=== PATIENT | female | born 1965 | race Caucasian/White ===

== ENCOUNTER 2016-04-09 02:06 | Observation (INO) | payer OTHER ==
[~2016-04-09] VITALS: Ht 165.1 cm; Wt 71.5 kg
[2016-04-09] MEDS ORDERED: SOD CHLORIDE 0.9% 500 ML IV STA (05:36)
[2016-04-09] MEDS ORDERED: FAMOTIDINE 20 MG INJ IV STA (06:52)
[2016-04-09] MEDS ORDERED: KETOROLAC 30 MG INJ IV STA (06:52)
[2016-04-09] MEDS ORDERED: SOD CHLORIDE 0.9% 1,000 ML IV STA (06:52)
[2016-04-09] MEDS ORDERED: ONDANSETRON 4 MG INJ IV STA (06:52)
[2016-04-09 07:10] LABS: BASOPHILS % 0.4 % (0.0-2.0); EOSINOPHILS # 0.1 10^3/ul (0.0-0.5); EOSINOPHILS % 1.2 % (0.0-7.0); HEMATOCRIT 43.9 % (37.0-47.0); LYMPHOCYTES # 2.7 10^3/ul (0.8-2.9); LYMPHOCYTES % 30.9 % (15.0-51.0); MEAN CORPUSCULAR HEMOGLOBIN 29.7 pg (29.0-33.0); MEAN CORPUSCULAR HGB CONC 34.3 g/dl (32.0-37.0); MEAN CORPUSCULAR VOLUME 86.6 fl (82.0-101.0); MEAN PLATELET VOLUME 8.8 fl (7.4-10.4); MONOCYTE # 0.5 10^3/ul (0.3-0.9); MONOCYTES % 5.4 % (0.0-11.0); NEUTROPHIL # 5.5 10^3/ul (1.6-7.5); NEUTROPHILS % 62.1 % (39.0-77.0); PLATELET COUNT 257 10^3/UL (140-440); RED BLOOD COUNT 5.06 10^6/ul (4.20-5.40); RED CELL DISTRIBUTION WIDTH 12.8 % (11.5-14.5); UNCORRECTED WBC 8.9 10^3/ul (4.8-10.8); WHITE BLOOD COUNT 8.9 10^3/ul (4.8-10.8)
[2016-04-09 07:14] LABS: CONDITION 1
[2016-04-09 07:18] LABS: ADD UMIC NO; URINE BILIRUBIN (Dip) NEGATIVE (NEGATIVE); URINE BLOOD (Dip) NEGATIVE (NEGATIVE); URINE COLOR LT. YELLOW (YELLOW); URINE GLUCOSE (Dip) NEGATIVE (NEGATIVE); URINE KETONES (Dip) NEGATIVE (NEGATIVE); URINE LEUKOCYTE ESTERASE (Dip) NEGATIVE (NEGATIVE); URINE NITRITE (Dip) NEGATIVE (NEGATIVE); URINE TOTAL PROTEIN (Dip) NEGATIVE (NEGATIVE); URINE UROBILINOGEN (Dip) 0.2 E.U./dL (0.1-1.0)
[2016-04-09 07:26] LABS: ALBUMIN 4.5 g/dl (3.3-4.9)
[2016-04-09 07:27] LABS: POTASSIUM 4.2 mmol/L (3.5-5.1)
[2016-04-09 07:29] LABS: ALBUMIN/GLOBULIN RATIO 1.07; BILIRUBIN,INDIRECT 0.4 mg/dl (0-1.1); BILIRUBIN,TOTAL 0.4 mg/dl (0.2-1.3); CREATININE 0.63 mg/dl (0.44-1.00); TOTAL PROTEIN 8.7 g/dl (6.1-8.1)
[2016-04-09 07:30] LABS: CALCIUM 9.7 mg/dl (8.4-10.2)
--- NOTE | 2016-04-09 07:45 | RADRPT ---
PROCEDURE: CT Abdomen and Pelvis without contrast. CLINICAL INDICATION: Abdominal pain TECHNIQUE: CT of the abdomen and pelvis was performed on a multi-detector scanner without IV contr ast. Coronal and sagittal images were reformatted from the axial data set. One or more of the foll owing dose reduction techniques were used: automated exposure control, adjustment of the mA and/or kV according to patient size, use of iterative reconstruction technique. CTDI = 12.1 mGy. DLP = 675 .27 mGy-cm. COMPARISON: None. FINDINGS: CT abdomen: The lung bases are clear. The heart size is normal, without pericardial effusion. Subtle heterogen eous density within the gallbladder is suspicious for cholelithiasis. Gallbladder wall thickening a nd pericholecystic fluid are noted. Findings are concerning for acute cholecystitis. Liver, biliar y tree, pancreas, spleen, adrenal glands and kidneys are unremarkable. No urolithiasis or obstructi ve uropathy is identified. The stomach is partially collapsed, but appears grossly unremarkable. The aorta is of normal caliber. Aortic vascular calcifications are present. There is no retroperit garg lymphadenopathy. The jim hepatis region is clear. CT pelvis: No bowel obstruction, free intraperitoneal air or abscess is identified. There is no diverticulosis , diverticulitis or colitis. The appendix is well visualized and normal. Urinary bladder, uterus a nd adnexa are grossly unremarkable. No pelvic mass, free fluid or lymphadenopathy is identified. The surrounding osseous structures are unremarkable. No osteolytic or osteoblastic lesion is detect ed. IMPRESSION: 1. Findings suspicious for cholelithiasis and cholecystitis, as above. Consider ultrasound and/or nuclear medicine HIDA scan for further evaluation. 2. Scattered aortoiliac atherosclerotic calcifications are present. RPTAT: EE .Kolby Khan MD, MD Date Time Electronically viewed and signed by .Kolby Khan MD, MD on 04/09/2016 07:44 .R/
--- NOTE | 2016-04-09 09:23 | RADRPT ---
PROCEDURE: US Abdomen. CLINICAL INDICATION: abdominal pain TECHNIQUE: Multiple real-time images were acquired of the patient's right upper quadrant abdomen a nd retroperitoneum utilizing a high resolution transducer. COMPARISON: None FINDINGS: The liver demonstrates normal echogenicity. The liver is normal in size and no focal solid lesions are seen. The liver measures 14.6 cm in length. The portal vein is patent with normal direction of f low. No intrahepatic biliary dilatation is seen. There are 2 calcified stones within the gallbladder. There is gallbladder wall thickening measuring 6 mm. There is mild pericholecystic fluid. The common bile duct measures 4 mm in maximal dimension . The visualized portions of the pancreas are unremarkable. The tail of the pancreas is not seen. No free fluid is identified. The right kidney is normal in size, and demonstrate normal echogenicity and cortical thickness. The right kidney measures 10.8 cm in long dimension. There is no evidence of hydronephrosis. There are no kidney stones. RPTAT: AA IMPRESSION: Cholelithiasis with gallbladder wall thickening and mild pericholecystic fluid may represent acute c holecystitis. .Beau Barrios MD, MD Date Time Electronically viewed and signed by .Beau Barrios MD, MD on 04/09/2016 09:22 .S/
--- NOTE | 2016-04-09 10:25 | ERA ---
ER Documentation Chief Complaint Date/Time DATE: 04/09/16 TIME: 10:22 Chief Complaint abdominal pain and burping since last night. HPI Patient is a 50-year-old female who comes to the emergency department with vague abdominal pain and burping since last night. She says the pain is actually a little better at this time. She says it started after she ate dinner. She denies any nausea, vomiting, fever, diarrhea, constipation, dysuria , hematuria, flank, back pain, or sick contacts. She states she has never experienced this pain before. She was afraid to eat again. She does mention that her period is late and wonders if she is . Denies any chest pain, shortness of breath, coughing, congestion, rhinorrhea, sore throat, or otalgia. In the remainder of the systems are negative. ROS All systems reviewed and are negative except as per history of present illness. Medications Home Meds Unable to Obtain Active Prescriptions or Reported Meds Allergies Allergies: Coded Allergies: Unknown: Unable to obtain (Unverified , 05/20/14) PMhx/Soc Medical and Surgical Hx: pt denies Surgical Hx History of Surgery: No Anesthesia Reaction: No Hx Neurological Disorder: No Hx Respiratory Disorders: No Hx Cardiac Disorders: Yes (htn) Hx Psychiatric Problems: No Hx Miscellaneous Medical Probl: No Hx Alcohol Use: No Hx Substance Use: No Hx Tobacco Use: No Smoking Status: Never smoker FmHx Family History: No diabetes Physical Exam Vitals Vital Signs Date Time Temp Pulse Resp B/P Pulse Ox O2 Delivery O2 Flow Rate FiO2 04/09/16 06:23 98.0 68 20 155/106 98 Room Air 04/09/16 02:12 97.5 92 20 167/113 98 Physical Exam Const: [] Well-developed well-nourished female sitting on the bed in no acute distress Head: Atraumatic Eyes: Normal Conjunctiva ENT: Normal External Ears, Nose and Mouth. Neck: Full range of motion..~ No meningismus. Resp: Clear to auscultation bilaterally Cardio: Regular rate and rhythm, no murmurs Abd: Soft, mild tenderness diffusely with no specific pattern noted ,non distended. Normal bowel sounds Skin: No petechiae or rashes Back: No midline or flank tenderness Ext: No cyanosis, or edema Neur: Awake and alert, oriented 3 with a GCS of 15 Psych: Normal Mood and Affect Result Diagram: 04/09/16 0609 04/09/16 0609 Results 24 hrs Laboratory Tests Test 04/09/16 06:09 Alanine Aminotransferase (ALT/SGPT) 30IU/L Albumin 4.5g/dl Albumin/Globulin Ratio 1.07 Alkaline Phosphatase 109IU/L Anion Gap 18 Aspartate Amino Transf (AST/SGOT) 33IU/L Basophils # 0.010^3/ul Basophils % 0.4% Beta HCG, Quantitative < 2.4mIU/ml Blood Urea Nitrogen 17mg/dl Calcium Level 9.7mg/dl Carbon Dioxide Level 31mmol/L Chloride Level 99mmol/L Creatinine 0.63mg/dl Direct Bilirubin 0.00mg/dl Eosinophils # 0.110^3/ul Eosinophils % 1.2% Globulin 4.20g/dl Glucose Level 90mg/dl Hematocrit 43.9% Hemoglobin 15.0g/dl Indirect Bilirubin 0.4mg/dl Lipase 115U/L Lymphocytes # 2.710^3/ul Lymphocytes % 30.9% Mean Corpuscular Hemoglobin 29.7pg Mean Corpuscular Hemoglobin Concent 34.3g/dl Mean Corpuscular Volume 86.6fl Mean Platelet Volume 8.8fl Monocytes # 0.510^3/ul Monocytes % 5.4% Neutrophils # 5.510^3/ul Neutrophils % 62.1% Nucleated Red Blood Cells # 0.010^3/ul Nucleated Red Blood Cells % 0.0/100WBC Platelet Count 07695^3/UL Potassium Level 4.2mmol/L Red Blood Count 5.0610^6/ul Red Cell Distribution Width 12.8% Sodium Level 144mmol/L Total Bilirubin 0.4mg/dl Total Protein 8.7g/dl Urine Bilirubin NEGATIVE Urine Clarity CLEAR Urine Color LT. YELLOW Urine Glucose NEGATIVE% Urine Hemoglobin NEGATIVE Urine Ketones NEGATIVE Urine Leukocyte Esterase NEGATIVE Urine Nitrite NEGATIVE Urine Specific [place] 1.010 Urine Total Protein NEGATIVE Urine Urobilinogen 0.2 E.U./dL Urine pH 7.0 White Blood Count 8.910^3/ul Current Medications Medications (Trade) Dose Ordered Sig/Theo Route PRN Reason Start Time Stop Time Status Last Admin Dose Admin Sodium Chloride 500 ml @ 500 mls/hr Q1H STAT IV 04/09/16 05:36 04/09/16 06:35 DC Sodium Chloride (NS) 1,000 ml @ 1,000 mls/hr Q1H STAT IV 04/09/16 06:52 04/09/16 07:51 DC 04/09/16 07:14 Ondansetron HCl (Zofran Inj) 4 mg ONCE STAT IV 04/09/16 06:52 04/09/16 06:55 DC 04/09/16 07:12 Famotidine (Pepcid Iv) 20 mg ONCE STAT IV 04/09/16 06:52 04/09/16 06:55 DC 04/09/16 07:12 Ketorolac Tromethamine 30 mg 30 mg ONCE STAT IV 04/09/16 06:52 04/09/16 06:55 DC 04/09/16 07:11 Ertapenem/Sodium Chloride (Invanz/NS) 100 ml @ 200 mls/hr ONCE ONCE IVPB 04/09/16 10:30 04/09/16 10:59 Procedures/MDM 1024: Patient states that she feels improved. There is no significant change in her exam. 1028: Spoke with Dr. Nunez. He requests that I speak with the hospitalist for admission. Departure Diagnosis: Primary Impression: Cholecystitis Additional Impression: Abdominal pain Qualified Code: R10.11 - Right upper quadrant abdominal pain Condition: Stable DANIA MANN Apr 09, 2016 10:25
[2016-04-09] MEDS ORDERED: ERTAPENEM SODIUM 1 GM in SOD CHLORIDE 0.9% 100 ML IVPB ONE (10:30)
[2016-04-09 11:30] VITALS: TEMP 98.2
[2016-04-09] MEDS ORDERED: BENA5TAB2 PO (11:36)
[2016-04-09] MEDS ORDERED: HYD25 PO (11:36)
[2016-04-09] MEDS ORDERED: ACETAMINOPHEN 325 MG TAB PO PRN (12:00)
[2016-04-09] MEDS ORDERED: BISACODYL 10 MG SUPP PR PRN (12:00)
[2016-04-09] MEDS ORDERED: ACETAMINOPHEN 650 MG SUPP PR PRN (12:00)
[2016-04-09] MEDS ORDERED: DOCUSATE SODIUM 100 MG CAP PO PRN (12:00)
[2016-04-09] MEDS ORDERED: ONDANSETRON 4 MG INJ IV PRN ×2 (12:00)
[2016-04-09] MEDS ORDERED: hydrALAzine 20 MG INJ IV PRN (12:00)
[2016-04-09] MEDS ORDERED: HYDROCODONE/APAP (5/325) TAB PO PRN (12:00)
[2016-04-09] MEDS ORDERED: morphine 2 MG INJ IV PRN (12:00)
[2016-04-09] MEDS ORDERED: LABETALOL HCL 20MG INJ IV ONE (12:00)
[2016-04-09] MEDS ORDERED: NACL 0.9% 3 ML SYG IV SCH (12:00)
[2016-04-09] MEDS: DEXTROSE 5%-0.45% NACL 1,000 ML IV SCH (12:11)
[2016-04-09 13:10] VITALS: BP 142/93; PULSE 79; RESP 20
[2016-04-09 13:56] VITALS: Ht 165.1 cm; Wt 71.5 kg
--- NOTE | 2016-04-09 16:57 | RADRPT ---
PROCEDURE: HIDA scan CLINICAL INDICATION: 50 -year-old patient with abdominal pain. TECHNIQUE: Following the intravenous injection of 7.3 mCi of Tc-99m mebrofenin, multiple images of the abdomen were obtained up to 60 minutes post injection. COMPARISON: No prior studies. FINDINGS: The liver is promptly visualized, demonstrates homogeneous distribution of radionuclide. There is visualization of the common bile duct, gallbladder and gastrointestinal activity within nor mal time. IMPRESSION: No evidence to suggest the presence of common bile or cystic ducts obstruction. A call report was made to Dr. Nunez at 04:55 p.m. on April 09, 2016 RPTAT: HH .Carolina Pradhan MD, MD Date Time Electronically viewed and signed by .Carolina Pradhan MD, on 04/09/2016 16:56 .L/
--- NOTE | 2016-04-09 18:01 | HP ---
DATE OF ADMISSION: 04/09/2016 TIME BUYER: Dr. Silvestre Nunez CHIEF COMPLAINT: Abdominal pain. HISTORY OF PRESENT ILLNESS: This is a 50-year-old female with past medical history of hypertension who presents to [facility] secondary to having abdominal discomfort in mid epigast skylar and right upper quadrant, which has been off and on for the past 2 months. The patient had abdo reed ultrasound, which showed cholelithiasis with gallbladder wall thickening and mild pericholecys tic fluid, may represent acute cholecystitis. The WBC was within normal limits. The patient's CT o f the abdomen with findings suspicious of cholelithiasis, cholecystitis, scattered aortoiliac athero sclerosis calcification was present. The patient was made n.p.o., IV fluid, and was treated with In [facility]. Has been admitted to med/surg where she had a HIDA scan, which showed no evidence of ____, co mmon bile duct or cystic duct obstruction. At this time, the patient denies any abdominal pain, [place] sea, vomiting, diarrhea. No chest pain, palpitations, edema, orthopnea. No change in visual acuity , diplopia, photophobia. No headache, dizziness, lightheadedness. No heat and cold intolerance. N o dysuria, hematuria, urgency, incontinence. No change in the color of stool or any other discomfor t. PAST MEDICAL AND SURGICAL HISTORY: Hypertension. MEDICATIONS: 1. Benazepril. 2. Hydrochlorothiazide. ALLERGIES: NO KNOWN DRUG ALLERGIES. FAMILY HISTORY: Noncontributory. SOCIAL HISTORY: Negative x3 for smoking, alcohol, illicit drugs. REVIEW OF SYSTEMS: As above per HPI, otherwise 12 review of systems has been found to be negative. PHYSICAL EXAMINATION: VITAL SIGNS: Temperature 98.1, pulse 79, respiration 20, blood pressure 142/93, oxygen 98% in room air. GENERAL APPEARANCE: The patient is lying in bed comfortably without acute distress. She is awake, alert, oriented. She is able to answer my questions properly. EYES AND ENT: Conjunctivae and lids are normal. Pupils are normal. Extraocular normal. Hearing g rossly normal. Lips are normal. Oral mucosa is moist. NECK: Supple. Trachea is midline. No lymphadenopathy. RESPIRATORY: Effort is normal. Clear to auscultate bilaterally. CARDIOVASCULAR: Normal S1, S2. Regular rhythm and rate. No murmur, no bruits, no edema. Peripher al pulses, radial pulses palpable. Cap refill is normal. CHEST: Normal expansion of thorax during inspiration. GASTROINTESTINAL: Abdomen is soft, nontender, not distended. Bowel sounds present. No guarding, n o rebound. GENITOURINARY: Deferred. MUSCULOSKELETAL: Upper and lower extremities within normal limits. Full range of motion. Strength 5/5 in both upper and lower extremities. NEUROLOGIC: Cranial nerves II through XII are grossly intact. PSYCHIATRIC: She is awake, alert, oriented. LABORATORY WORK AND IMAGING: Sodium 144, potassium 4.2, chloride 99, bicarbonate 31, BUN 17, creati nine 0.63, glucose 90, calcium 9.7. LFTs all within normal limits. Total protein 8.7. Lipase 115. AST, ALT, bilirubin are within normal limits. WBC 8.9, hemoglobin 15, hematocrit 43.9, platelets 257. Urinalysis is negative. CT the abdomen and pelvis, abdominal ultrasound, and HIDA scan as abo ve per HPI. ASSESSMENT AND PLAN: 1. Abdominal pain with the finding of cholelithiasis with gallbladder wall thickening and mild yesica cholecystic fluid on the abdominal ultrasound. The patient is asymptomatic. HIDA scan was negative . General surgery has been consulted. At this time, place patient n.p.o., IV fluid, pain medicatio n. Will follow with general surgery recommendation. The patient has been started on cefazolin. 2. Essential hypertension. Continue benazepril. 3. For deep venous thrombosis prophylaxis, on sequential compression devices. 4. For gastrointestinal prophylaxis, on proton pump inhibitor. 5. We will continue to monitor patient closely. Further recommendations, management, and treatment as per clinical course. Total time spent for evaluation of patient and admission workup, 40 minutes. Dictated By: JESSE MUSE/NTS Conf#: [id number] DID#: [id number]
[2016-04-09 19:39] VITALS: BP 138/97; RESP 18
[2016-04-09] MEDS ORDERED: BENAZEPRIL 5 MG TAB PO SCH (21:00)
--- NOTE | 2016-04-09 21:15 | CONS ---
DATE OF ADMISSION: 04/09/2016 DATE OF CONSULTATION: 04/09/2016 HISTORY OF PRESENT ILLNESS: Ms. De La Cruz is a 50-year-old female who presented to the ER today with some mid epigastric and questionable right upper quadrant pain which has been on and off for the pa st 2 months. The patient denies nausea or vomiting. She also denies further symptoms at this time. PAST MEDICAL HISTORY: Significant for hypertension. MEDICATIONS: Benazepril, hydrochlorothiazide. ALLERGIES: NO KNOWN DRUG ALLERGIES. SOCIAL HISTORY: Denies smoking, drinking or drug use. PHYSICAL EXAMINATION: GENERAL: She is a well-nourished, well-developed female in no apparent distress. VITAL SIGNS: She is afebrile. Vital signs stable. CHEST: Clear to auscultation bilaterally. HEART: Regular rhythm. ABDOMEN: Soft, nontender, nondistended. LABORATORY DATA: Today reveal a white count of 9, hematocrit of 44, platelets of 257. Her LFTs wer e within normal limits. Sodium 144, potassium 4.2, chloride 99, CO2 of 31, BUN and creatinine 17 an d 0.6 and a glucose of 90. Her CT of her abdomen and pelvis revealed findings suspicious for cholel ithiasis and cholecystitis. An ultrasound of her gallbladder showed cholelithiasis and possible gal lbladder wall thickening and mild pericholecystic fluid, which may represent acute cholecystitis. A HIDA scan was normal. ASSESSMENT AND PLAN: Ms. De La Cruz is a 50-year-old female with abdominal pain of uncertain etiology . 1. She obviously does not have acute cholecystitis based on the HIDA scan as well as the fact she i s nontender on exam. Nor does she have a white count. 2. Start her on p.o.s and if tolerates, can be discharged home. 3. I explained to her that this possibly could be her gallbladder but I am not clear at this point. If her symptoms happen again then I would recommend a laparoscopic cholecystectomy at that point. Dictated By: SEPIDEH WATSON/IQRA Conf#: [id number] DID#: [id number]
[2016-04-09] MEDS: CEFAZOLIN 1 GM/50 ML (PMX) 50 ML IVPB SCH (21:28)
[2016-04-09] MEDS: ACETAMINOPHEN 325 MG TAB PO PRN (21:28)
[2016-04-10] MEDS: DEXTROSE 5%-0.45% NACL 1,000 ML IV SCH (01:11)
[2016-04-10] MEDS: ACETAMINOPHEN 325 MG TAB PO PRN (03:33)
[2016-04-10 05:39] LABS: BASOPHILS % 0.4 % (0.0-2.0); EOSINOPHILS # 0.1 10^3/ul (0.0-0.5); EOSINOPHILS % 2.9 % (0.0-7.0); HEMOGLOBIN 13.8 g/dl (12.0-16.0); LYMPHOCYTES # 2.1 10^3/ul (0.8-2.9); LYMPHOCYTES % 42.9 % (15.0-51.0); MEAN CORPUSCULAR HEMOGLOBIN 29.7 pg (29.0-33.0); MEAN CORPUSCULAR HGB CONC 34.6 g/dl (32.0-37.0); MEAN CORPUSCULAR VOLUME 85.9 fl (82.0-101.0); MEAN PLATELET VOLUME 8.2 fl (7.4-10.4); MONOCYTE # 0.5 10^3/ul (0.3-0.9); MONOCYTES % 9.9 % (0.0-11.0); NEUTROPHIL # 2.2 10^3/ul (1.6-7.5); NEUTROPHILS % 43.9 % (39.0-77.0); PLATELET COUNT 225 10^3/UL (140-440); RED BLOOD COUNT 4.65 10^6/ul (4.20-5.40); RED CELL DISTRIBUTION WIDTH 12.9 % (11.5-14.5); UNCORRECTED WBC 4.9 10^3/ul (4.8-10.8); WHITE BLOOD COUNT 4.9 10^3/ul (4.8-10.8)
[2016-04-10] MEDS: CEFAZOLIN 1 GM/50 ML (PMX) 50 ML IVPB SCH (05:49)
[2016-04-10] MEDS ORDERED: PANTOPRAZOLE (EC) 40 MG TAB PO SCH (06:00)
[2016-04-10 06:20] LABS: ALBUMIN 3.7 g/dl (3.3-4.9)
[2016-04-10 06:23] LABS: ALBUMIN/GLOBULIN RATIO 1.08; BILIRUBIN,INDIRECT 0.5 mg/dl (0-1.1); BILIRUBIN,TOTAL 0.5 mg/dl (0.2-1.3); CREATININE 0.69 mg/dl (0.44-1.00); TOTAL PROTEIN 7.1 g/dl (6.1-8.1)
[2016-04-10 06:24] LABS: CALCIUM 9.3 mg/dl (8.4-10.2); CHOL/HDL RATIO 4.2 RATIO
[2016-04-10 06:56] LABS: CONDITION 1
[2016-04-10 07:20] VITALS: BP 131/88; RESP 22
--- NOTE | 2016-04-10 10:35 | PDOCDIS ---
Discharge Instructions CONDITION Patient Condition: Good HOME CARE INSTRUCTIONS: Special Diet: Low fat/ cholesterol diet ACTIVITY: Activity Restrictions: No Restrictions FOLLOW UP/APPOINTMENTS Appointments Follow up with PCP in one week JESSE ROD MD Apr 10, 2016 10:35
[2016-04-10] MEDS ORDERED: CEPH500C PO (10:38)
[2016-04-10] MEDS ORDERED: HYDR-906 PO (10:38)
[2016-04-10] MEDS ORDERED: FAMO-18 PO (10:38)
--- NOTE | 2016-04-10 22:17 | DS ---
DATE OF ADMISSION: 04/09/2016 DATE OF DISCHARGE: 04/10/2016 MALT LOADER: General surgery. DISCHARGE DIAGNOSES: 1. Abdominal pain. 2. Cholelithiasis. 3. Essential hypertension. IMAGING: HIDA scan showed no evidence to suggest the presence of common bile duct or cystic duct ob struction. LABORATORY: WBC 4.9, hemoglobin 13.9, hematocrit 40, platelets 225,000. Sodium 143, potassium 4.0, chloride 102, bicarbonate 31, BUN 11, creatinine 0.69, glucose 106. LFTs all within normal limits. VITAL SIGNS: Temperature 98.4, pulse 69, respiration 22, blood pressure 131/88, oxygen saturation 1 00%. HOSPITAL COURSE: This is a pleasant 50-year-old female with past medical history of hypertension, w ho presents to [facility] ER secondary to having abdominal discomfort. The pain was not as sociated with any nausea or vomiting. It was in the midepigastric and right upper quadrant. The pa tient's WBC was normal. Vitals were found to be normal. Patient obtained a gallbladder ultrasound, which showed cholelithiasis, gallbladder wall thickening, and mild pericholecystic fluid may repres ent acute cholecystitis. The patient was admitted to Med/Surg. Surgery was consulted. Patient was made n.p.o. IV fluid and pain medication was initiated. After evaluation by medical team and gene ral surgery, patient was found to be asymptomatic. HIDA scan was obtained, which was negative for o bstruction. Patient was restarted on clear liquid diet and has been advanced to regular diet, and h as been tolerating. At this time, the patient is medically stable to be discharged home with a clos e followup with her primary care physician as an outpatient. I have instructed, in case the patient has any episodes of abdominal discomfort postprandial, especially when patient is consuming fatty f ood, the patient needs to return to emergency room immediately for possible elective cholecystectomy . CONDITION AT TIME OF DISCHARGE: At this time is stable. Total time spent for evaluation and discharge workup was 35 minutes. Dictated By: JESSE ROD MD PN/NTS Conf#: [id number] DID#: [id number]
== END 2016-04-10 13:55 | disposition home or self-care (01) ==
LOC: E/R 02:06 → UNDOADMOB 11:51 → MS2 11:51
PROVIDERS: ADMIT Family Medicine; ATTEND Family Medicine
DX: K80.20 Calculus of gallbladder without cholecystitis without obstruction (principal); I10 Essential (primary) hypertension
CPT/HCPCS: 36415; 74176; 76705; 78226; 80053; 80061; 81003; 83690; 83735; 84702; 85025; 96365; 96375; A9537; J0690; J1335; J1885; J2405; J7030; J7040; J7042; Z7500; Z7502; Z7610; G0378

== ENCOUNTER 2017-03-18 19:33 | Emergency (ER) | END 2017-03-19 02:35 | disposition home or self-care (01) ==

== ENCOUNTER 2017-08-25 19:20 | Emergency (ER) | END 2017-08-25 23:43 | disposition home or self-care (01) ==

== ENCOUNTER 2018-07-30 20:45 | Emergency (ER) | payer OTHER ==
[~2018-07-30] VITALS: Ht 165.1 cm; Wt 75.5 kg
[~2018-07-30 20:45] MED LIST: BEN25 PO; BENA5TAB33 PO; CLIN300C10 PO; FAMO-96 PO; HYDR25TA6 PO; PRED20TA PO
[2018-07-30 21:30] VITALS: Ht 165.1 cm; Wt 75.5 kg
--- NOTE | 2018-07-30 22:41 | ERD ---
ER Documentation Chief Complaint Chief Complaint chest congestion & been having hi BP x 3weeks;Benazepril no working HPI The patient is a 52-year-old female, presenting to the ER because of nasal congestion for the last 4 days with intermittent cough and sore throat. She also claimed that her blood pressure is elevated despite taking benazepril 10 mg daily. She denies headache, neck pain, chest pain, dyspnea, abdominal pain, vomiting, dysuria, diarrhea. She does not smoke nor drink, has increased stress in her life Past medical history: Hypertension Past surgical history: None ROS All systems reviewed and are negative except as per history of present illness. Medications Home Meds Active Scripts Cetirizine Hcl* (Zyrtec*) 10 Mg Capsule, 10 MG PO DAILY, #10 TAB Prov:NAVI GARCIA MD 07/31/18 Fluticasone Propionate (Flonase Allergy Relief) 9.9 Ml [place].susp, 2 SPRAY NASAL DAILY, #1 BOTTLE TO EACH NOSTRIL Prov:NAVI GARCIA MD 07/31/18 Nifedipine* (Nifedipine ER*) 30 Mg Tablet.sa, 30 MG PO DAILY for 7 Days, TAB.SA Prov:NAVI GARCIA MD 07/31/18 Prednisone* (Prednisone*) 20 Mg Tab, 40 MG PO DAILY for 4 Days, TAB Prov:MANUELA BARRON MD 08/25/17 Famotidine* (Pepcid*) 20 Mg Tablet, 20 MG PO BID for 4 Days, TAB Prov:MANUELA BARRON MD 08/25/17 Diphenhydramine Hcl* (Benadryl*) 25 Mg Cap, 25 MG PO Q6 PRN for ITCHING/RASH, #16 TAB Prov:MANUELA BARRON MD 08/25/17 Clindamycin Hcl* (Clindamycin Hcl*) 300 Mg Capsule, 300 MG PO TID for 10 Days, CAP Prov:MANUELA BARRON MD 08/25/17 Reported Medications Hydrochlorothiazide* (Hydrochlorothiazide*) 25 Mg Tab, 25 MG PO DAILY, #30 TAB 08/25/17 Benazepril Hcl* (Benazepril Hcl*) 5 Mg Tablet, 5 MG PO QHS, #30 TAB 08/25/17 Allergies Allergies: Coded Allergies: mupirocin (Unverified Allergy, Unknown, LEGS SWELLING, 08/25/17) sulfamethoxazole (Unverified Allergy, Unknown, SWELLING BODY PARTS, 08/25/17) PMhx/Soc History of Surgery: No Anesthesia Reaction: No Hx Neurological Disorder: No Hx Respiratory Disorders: No Hx Cardiac Disorders: No Hx Psychiatric Problems: No Hx Miscellaneous Medical Probl: Yes (HTN) Hx Alcohol Use: No Hx Substance Use: No Hx Tobacco Use: No Physical Exam Vitals Vital Signs Date Temp Pulse Resp B/P (MAP) Pulse Ox O2 O2 Flow FiO2 Time Delivery Rate 07/31/18 83 16 169/109 100 Room Air 02:22 (129) 07/31/18 83 20 173/115 100 Room Air 01:33 (134) 07/31/18 77 16 166/117 100 Room Air 00:34 (133) 07/30/18 82 16 176/128 100 Room Air 23:02 (144) 07/30/18 98.4 88 18 197/112 100 21:30 (140) Physical Exam Const: No acute distress. Head: Atraumatic. Eyes: Normal Conjunctiva. ENT: Normal External Ears, Nose and Mouth. No sinus tenderness Neck: Full range of motion. No meningismus. Resp: Clear to auscultation bilaterally. Cardio: Regular rate and rhythm. Abd: Soft, non distended, normal bowel sounds, non tender. Skin: No petechiae or rashes. Back: No midline or flank tenderness. Ext: No cyanosis, or edema. Neur: Awake and alert. No focal deficit Psych: Normal Mood and Affect. Results 24 hrs Current Medications Medications Dose Sig/Theo Start Time Status Last (Trade) Ordered Route PRN Stop Time Admin Dose Reason Admin Nifedipine 30 mg ONCE ONCE 07/30/18 DC 07/30/18 (Procardia PO 23:00 23:01 Xl) 07/30/18 23:01 Procedures/MDM MEDICAL MAKING DECISION: The patient is a 52-year-old female, presenting with acute accelerated hypertension, acute viral syndrome. She was treated with Procardia XL 30 mg p.o. with good blood pressure response, is stable for outpatient follow-up The differential diagnoses considered include but are not limited to medical/dietary noncompliance, sinusitis, allergic rhinitis Departure Diagnosis: Primary Impression: Accelerated hypertension Additional Impression: URI (upper respiratory infection) Condition: Good Comments She was discharged with Procardia XL 30 mg daily, Flonase, Zyrtec I discussed the findings with the patient. I advised the patient to follow-up with the primary physician in about 2-3 days, sooner if needed and return if any concern. Disclaimer: Inadvertent spelling and grammatical errors are likely due to EHR/dictation software use and do not reflect on the overall quality of patient care. Also, please note that the electronic time recorded on this note does not necessarily reflect the actual time of the patient encounter. NAVI GARCIA MD July 30, 2018 22:41
[2018-07-30] MEDS ORDERED: NIFEdipine (XL) 30 MG TAB PO ONE (23:00)
[2018-07-31] MEDS ORDERED: NIFE30TA23 PO (01:49)
[2018-07-31] MEDS ORDERED: FLUT9.9S NASAL (01:50)
[2018-07-31] MEDS ORDERED: CETI10CA PO (01:50)
[2018-07-31 02:22] VITALS: BP 169/109; PULSE 83; RESP 16
== END 2018-07-31 02:22 | disposition home or self-care (01) ==
LOC: E/R 20:45
DX: I10 Essential (primary) hypertension (principal); J06.9 Acute upper respiratory infection, unspecified
CPT/HCPCS: Z7502; Z7610; 99283